=== PATIENT | female | born 1995 | race Caucasian/White ===

== ENCOUNTER 2018-04-28 14:27 | Emergency (ER) | payer OTHER ==
[2018-04-28] MEDS ORDERED: KETOROLAC 30 MG INJ IM (15:01)
[2018-04-28] MEDS ORDERED: CEFTRIAXONE 1 GM INJ IM (15:30)
[2018-04-28 15:34] LABS: HEMATOCRIT 38.3 % (37.0-47.0); HEMOGLOBIN 12.1 g/dl (12.0-16.0); MEAN CORPUSCULAR HEMOGLOBIN 25.5 pg (29.0-33.0); MEAN CORPUSCULAR HGB CONC 31.6 g/dl (32.0-37.0); MEAN CORPUSCULAR VOLUME 80.8 fl (82.0-101.0); MEAN PLATELET VOLUME 10.8 fl (7.4-10.4); PLATELET COUNT 202 10^3/UL (140-415); RED BLOOD COUNT 4.74 10^6/ul (4.20-5.40); RED CELL DISTRIBUTION WIDTH 16.9 % (11.5-14.5)
[2018-04-28 15:34] LABS: WHITE BLOOD COUNT 5.6 10^3/ul (4.8-10.8)
[2018-04-28] MEDS: CEFTRIAXONE 1 GM/50 ML (PMX) 50 ML IVPB (15:36)
[2018-04-28] MEDS: SOD CHLORIDE 0.9% 1,000 ML IV (15:36)
[2018-04-28 15:37] LABS: ADD MAN DIFF? YES; POSITIVE DIFF @See below
[2018-04-28] MEDS: KETOROLAC 30 MG INJ IV (15:37)
[2018-04-28 15:50] LABS: ALANINE AMINOTRANSFERASE 57 IU/L (13-69); ALBUMIN 4.3 g/dl (3.3-4.9); ALKALINE PHOSPHATASE 93 IU/L (42-121); ANION GAP 14 (5-13); ASPARTATE AMINO TRANSFERASE 46 IU/L (15-46); BILIRUBIN,INDIRECT 0.4 mg/dl (0-1.1); BILIRUBIN,TOTAL 0.4 mg/dl (0.2-1.3); BLOOD UREA NITROGEN 10 mg/dl (7-20); CALCIUM 9.2 mg/dl (8.4-10.2); CARBON DIOXIDE 21 mmol/L (21-31); CHLORIDE 105 mmol/L (97-110); CREATININE 0.73 mg/dl (0.44-1.00); Estimated GFR > 60 mL/min (>60); GLUCOSE 111 mg/dl (70-220); POTASSIUM 3.8 mmol/L (3.5-5.1); SODIUM 140 mmol/L (135-144); TOTAL PROTEIN 8.6 g/dl (6.1-8.1)
[2018-04-28] MEDS: ACETAMINOPHEN 500 MG TAB PO (15:55)
[2018-04-28 15:57] LABS: ADD UMIC YES; UR ASCORBIC ACID NEGATIVE (NEGATIVE); UR BACTERIA FEW /HPF (NONE SEEN); UR BILIRUBIN (Dip) NEGATIVE (NEGATIVE); UR BLOOD (Dip) 2+ mg/dL (NEGATIVE); UR CLARITY TURBID (CLEAR); UR COLOR YELLOW (YELLOW); UR GLUCOSE (Dip) NEGATIVE (NEGATIVE); UR KETONES (Dip) NEGATIVE (NEGATIVE); UR LEUKOCYTE ESTERASE (Dip) 3+ Leu/ul (NEGATIVE); UR MUCUS FEW /HPF (NONE SEEN); UR NITRITE (Dip) POSITIVE (NEGATIVE); UR RBC 23 /HPF (0-5); UR TOTAL PROTEIN (Dip) 2+ mg/dl (NEGATIVE); UR UROBILINOGEN (Dip) NEGATIVE (NEGATIVE); UR WBC > 182 /HPF (0-5)
[2018-04-28 16:30] LABS: ANISOCYTOSIS 1+ (0-0); BAND NEUTROPHILS #M 0.4 10^3/ul (0.0-0.6); BAND NEUTROPHILS % (M) 8 % (0-4); LYMPHOCYTES #M 0.7 10^3/ul (0.8-2.9); LYMPHOCYTES % (M) 13 % (15-51); MICROCYTOSIS 1+ (0-0); PLATELET ESTIMATE NORMAL; POIKILOCYTOSIS 1+ (0-0); POLYCHROMASIA 1+ (0-0); SEG NEUT #M 4.4 10^3/ul (1.6-7.5); SEGMENTED NEUTROPHILS (M) % 79 % (39-77); SMUDGE%M 2 % (0-0)
[2018-04-28] MEDS: CEPHALEXIN 500 MG CAP PO (17:17)
== END 2018-04-28 17:18 | disposition home or self-care (01) ==
LOC: E/R 14:27
DX: N12 Tubulo-interstitial nephritis, not specified as acute or chronic (principal); Z87.798 Personal history of other (corrected) congenital malformations; Z91.040 Latex allergy status
CPT/HCPCS: 80053; 81001; 81025; 85025; 87086; 96374; 96375; 99284-25

== ENCOUNTER 2018-10-04 16:23 | Emergency (ER) | payer OTHER | END 2018-10-04 17:21 | disposition home or self-care (01) | LOC: E/R 17:21 | DX: O99.89 Other specified diseases and conditions complicating pregnancy, childbirth and the puerperium (principal); M54.2 Cervicalgia; Z3A.01 Less than 8 weeks gestation of pregnancy; Z91.040 Latex allergy status | CPT/HCPCS: 99282; Z7502 ==